=== PATIENT | female | born 1985 | race American Indian/Alaskan Native ===

== ENCOUNTER 2018-02-25 20:55 | Emergency (ER) | payer OTHER ==
[2018-02-25 21:20] VITALS: BP 126/93
[2018-02-25] MEDS ORDERED: TYLENOL PO ONE (21:24)
[2018-02-25] MEDS ORDERED: TYLENOL ONE (21:25)
== END 2018-02-25 21:30 | disposition left against medical advice (07) ==
LOC: ED 20:55
DX: M54.5 Low back pain (principal); Z53.21 Procedure and treatment not carried out due to patient leaving prior to being seen by health care provider